=== PATIENT | female | born 1995 | race Caucasian/White ===

== ENCOUNTER 2017-01-27 13:21 | Observation (INO) ==
--- NOTE | 2017-01-27 13:40 | OB/GYN Progress Note ---
Date of Encounter: 01/27/17 Time of Encounter: 13:38 - Assessment and Plan (1) 27 weeks gestation of Current Visit: Yes Status: Acute Pt presetns with c/o off and on vb over last 3-4 days and cramps. She reports goo d po intake. No uti sx's. Subjective - Subjective Principal diagnosis: Pt presents with c/o sporadic uc's and vb 2 days ago Interval history: Pt presents with c/o off and on VB when she wipes over last few days. She also c/o low back pain and occ uc's She was given Terazol for yeast infection. She reports +GFM. Objective - Vital Signs Vital Signs: Intake and Output 01/26/17 01/27/17 01/27/17 23:59 07:59 15:59 Other: Weight 121 kg Patient Weight 01/27/17 23:59 Weight 121 kg - Exam FHR: category 1 Auscultation: bilateral: normal Abdomen: Present: gravid Uterus: Present: normal Cervical dilation: cl Cervix effacement: th station: -2
[2017-01-27 13:43] VITALS: BP 130/63
[2017-01-27 14:30] LABS: Amphetamine Screen,Urine Negative ng/mL (Cutoff=1000); Barbiturate Screen,Urine Negative ng/mL (Cutoff=200); Benzodiazepines Screen,Urine Negative ng/mL (Cutoff=200); Cannabinoid Screen,Urine Negative ng/mL (Cutoff = 50); Cocaine Screen,Urine Negative ng/mL (Cutoff= 300); Opiate Screen,Urine Negative ng/mL (Cutoff=300); Phencyclidine Screen,Urine Negative ng/mL (Cutoff=25)
[2017-01-27 14:51] LABS: Bilirubin,Urine Negative (Negative); Blood,Urine Negative (Negative); Clarity,Urine Cloudy (Clear); Color,Urine Yellow (Yellow); Glucose,Urine (UA) Normal (Normal); Ketones,Urine Negative (Negative); Leukocyte Esterase,Urine Trace (Negative); Nitrite,Urine Negative (Negative); Protein,Urine Negative (Neg-Trace); Specific Gravity,Urine 1.015 (1.010-1.025); Urobilinogen,Urine Normal (Normal)
[2017-01-27 14:52] LABS: RBC,Urine 0-3 per hpf (0-3); Squamous Epithelial Cell,Urine Many per lpf (None-Few)
== END 2017-01-27 14:59 | disposition home or self-care (01) ==
LOC: 1NENULAB
PROVIDERS: ADMIT Obstetrics & Gynecology; ATTEND Obstetrics & Gynecology

== ENCOUNTER → 2017-03-27 03:45 | Observation (INO) ==
[2017-03-26 19:16] LABS: Basophils % 0.1 %; Eosinophils % 0.3 %; Hematocrit 30.4 % (35.3-44.9); Hemoglobin 9.8 g/dL (11.5-15.4); Immature Granulocytes % 0.5 % (0-4); Lymphocytes # 0.8 K/mcL (0.6-4.6); Lymphocytes % 5.9 %; Mean Corpuscular HGB Conc 32.2 g/dL (31.6-35.5); Mean Corpuscular Hemoglobin 24.1 pg (28.0-33.3); Mean Corpuscular Volume 74.7 fL (83.0-100.0); Mean Platelet Volume 9.4 fL (9.4-12.4); Monocytes # 0.4 K/mcL (0.0-1.3); Monocytes % 2.9 %; Neutrophils # 12.6 K/mcL (1.6-8.9); Platelet Count 279 K/mcL (140-400); Red Blood Count 4.07 M/mcL (3.82-4.97); Red Cell Distribution Width 16.4 % (11.5-14.5); Segmented Neutrophils % 90.3 %
[2017-03-26 19:22] LABS: Amphetamine Screen,Urine Negative ng/mL (Cutoff=1000); Barbiturate Screen,Urine Negative ng/mL (Cutoff=200); Benzodiazepines Screen,Urine Negative ng/mL (Cutoff=200); Cannabinoid Screen,Urine Negative ng/mL (Cutoff = 50); Cocaine Screen,Urine Negative ng/mL (Cutoff= 300); Opiate Screen,Urine Negative ng/mL (Cutoff=300); Phencyclidine Screen,Urine Negative ng/mL (Cutoff=25)
[2017-03-26 19:28] LABS: Aspartate Amino Transferase 10 Units/L (5-34); BUN/Creatinine Ratio 7 (6-26); Lactate Dehydrogenase 220 Units/L (159-327); Uric Acid 5.2 mg/dL (2.6-6.0); eGFR For African Americans > 60 (> 60); eGFR For Non-African Americans > 60 (> 60)
[2017-03-26 19:29] LABS: Alanine Aminotransferase < 6 Units/L (0-55); Blood Urea Nitrogen 4 mg/dL (7-20)
[2017-03-26 22:08] LABS: Protein/Creatinine Ratio,Urine 0.14 mg/mg (0-0.20)
--- NOTE | 2017-03-26 22:39 | OB/GYN Progress Note ---
Date of Encounter: 03/27/17 Time of Encounter: 22:35 - Assessment and Plan (1) Headache in , antepartum Current Visit: Yes Status: Acute Tylenol po and reglan IVP (2) 35 weeks gestation of Current Visit: No Status: Acute (3) Dizziness, nonspecific Current Visit: No Status: Acute IV fluid given and resolved after IV bolus (4) Gestational hypertension affecting second Current Visit: Yes Status: Acute BP 150-150/80's Last 3 120/60, 128/65, 135/72 PIH labs negative. Discussed with Dr. Byrd. Due to admission tachycardia and periods of minimal variability will continue monitoring over night. anticipate discharge in AM Subjective - Subjective Interval history: 35+3 presents to triage, with complaints of nausea, dizziness, headache and not feeling well since this AM. Reports good movement, occasional contractions, denies vaginal bleeding or leaking of fluid. Pt with history of pre-e in last and states that she feels the same as when she started to have pre-e last time. Pt started on Zpack yesterday from Dr. Lancaster for URI and has taken in the past without side effects. Headache not relieved by tylenol at home. Denies visual changes except with bending over or when dizzy or RUQ pain. Antepartum ROS: movement normal, contractions, no loss of fluid, no vaginal bleeding Objective - Vital Signs Vital Signs: Intake and Output 03/26/17 03/26/17 03/26/17 07:59 15:59 23:59 Other: Weight 121.7 kg Patient Weight 03/26/17 23:59 Weight 121.7 kg - Exam FHR comments: Initial baseline 180-185 minimal variability, resolved with fluid bolus to 165 baseline, Difficult to monitor. Very active movement and accelerations heard, but not able to trace, when no activity minimal variability at baseline. Auscultation: bilateral: normal Abdomen: Present: normal appearance, soft, gravid Uterus: Present: normal Cervical dilation: closed - Labs Labs: Abnormal lab results WBC 14.0 K/mcL (4.3-11.1) H 03/26/17 18:58 Hgb 9.8 g/dL (11.5-15.4) L 03/26/17 18:58 Hct 30.4 % (35.3-44.9) L 03/26/17 18:58 MCV 74.7 fL (83.0-100.0) L 03/26/17 18:58 MCH 24.1 pg (28.0-33.3) L 03/26/17 18:58 RDW 16.4 % (11.5-14.5) H 03/26/17 18:58 Neutrophils # 12.6 K/mcL (1.6-8.9) H 03/26/17 18:58 BUN 4 mg/dL (7-20) L 03/26/17 18:58 Urine Total Protein 25 mg/dL (1-14) H 03/26/17 18:55
[~2017-03-27 03:45] MED LIST: Acetaminophen 325 MG TABLET PO ONE; Metoclopramide 10 MG/2 ML VIAL IVP ONE; Ringers Solution, Lactated 1,000 ML IVC ONE; Ringers Solution, Lactated 1,000 ML IVC SCH; Ringers Solution, Lactated 1,000 ML ONE
== END | disposition home or self-care (01) ==
LOC: 1NENULAB
PROVIDERS: ADMIT Obstetrics & Gynecology; ATTEND Obstetrics & Gynecology

== ENCOUNTER → 2017-03-27 22:32 | Observation (INO) ==
--- NOTE | 2017-03-27 22:15 | Discharge Summary ---
Date of Encounter: 03/27/17 Time of Encounter: 22:14 - Discharge Diagnosis (1) 35 weeks gestation of Priority: Primary Status: Acute Comments: Admitted for monitoring (2) Gestational hypertension w/o significant proteinuria in 3rd trimester Priority: Secondary Status: Acute Comments: Serial blood pressures (3) Headache in , antepartum Priority: Secondary Status: Acute Comments: Patient declines Tylenol because "it doesn't help." (4) NST (non-stress test) reactive Priority: Secondary Status: Acute Comments: FHR 150 bpm, moderate variability, + 15x15 accels, no decels. Category I tracing. - Discharge Medications Home Medications: Azithromycin 6-Tab Pack 1 tab PO DAILY 03/26/17 [History] Allergies/Adverse Reactions: 3 Allergy/AdvReac Type Severity Reaction Status Date / Time No Known Allergies Allergy Verified 03/27/17 21:13 Date of admission: 03/27/17 20:40 Discharging clinician: Cordelia Pat Anticipated date of discharge: 03/27/17 - Patient Status Disposition: Home, Self-Care Condition: Good Functional capacity at discharge: independent ambulation - Discharge Instructions Follow Up With: Blake Lancaster MD [Partnered Physician] - - Diet and Activity Activity: resume usual activities as tolerated Diet: regular diet Hospital Course TIRE BUFFER Hospital course: Renu is a 21 year old at 35w4d arrived with complaints of elevated blood pressures at home. Pt was in the unit yesterday for PIH evals with labs returning normal. Serial blood pressures today range from 134/73-143/85. Pt reports a headache today but hasn't taken Tylenol because she states "it doesn' t help." Reflexes 2+ bilateral upper and lower extremities, denies epigastric pain. Time Attestation: Total time spent providing and/or coordinating discharge services: Time Spent: Less than 30 minutes Exam - Constitutional General appearance IM: A&O X 3, pleasant, no acute distress - Respiratory Respiratory exam: Present: CTAB - Cardiovascular Cardiovascular exam IM: Present: RRR, +S1, +S2 - GI/Abdominal GI/Abdominal exam IM: normal bowel sounds - Rectal Rectal exam: deferred - Extremities Exam Extremities exam IM: Present: full ROM, normal capillary refill, normal inspection, warm - Neurological Exam Neurological exam: alert, oriented X3, reflexes normal - Other Additional findings: FHR 150 bpm, moderate variability, +15x15 accels, no decels. Category I tracing. - VTE Reasons for not Prescribing Prophylaxis: Treatment not Indicated - Low risk for VTE
== END | disposition home or self-care (01) ==
LOC: 1NENULAB
PROVIDERS: ADMIT Advanced Practice Midwife; ATTEND Advanced Practice Midwife

== ENCOUNTER → 2017-04-08 17:20 | Observation (INO) ==
[2017-04-08 13:25] LABS: Bilirubin,Urine Negative (Negative); Blood,Urine Negative (Negative); Clarity,Urine Cloudy (Clear); Color,Urine Yellow (Yellow); Glucose,Urine (UA) Normal (Normal); Ketones,Urine Negative (Negative); Leukocyte Esterase,Urine Large (Negative); Nitrite,Urine Negative (Negative); Protein,Urine 30 mg/dL (Neg-Trace); Specific Gravity,Urine 1.019 (1.010-1.025); Urobilinogen,Urine Normal (Normal)
[2017-04-08 13:28] LABS: Bacteria,Urine Many per hpf (None-Few); Hyaline Casts,Urine Few per lpf (None-Few); RBC,Urine 0-3 per hpf (0-3); Squamous Epithelial Cell,Urine Many per lpf (None-Few); WBC,Urine 30-50 per hpf (0-3)
[2017-04-08 13:48] LABS: Basophils % 0.2 %; Eosinophils % 0.2 %; Hemoglobin 10.2 g/dL (11.5-15.4); Immature Granulocytes % 0.6 % (0-4); Lymphocytes # 1.6 K/mcL (0.6-4.6); Lymphocytes % 11.2 %; Mean Corpuscular HGB Conc 30.9 g/dL (31.6-35.5); Mean Corpuscular Hemoglobin 23.3 pg (28.0-33.3); Mean Corpuscular Volume 75.3 fL (83.0-100.0); Mean Platelet Volume 9.8 fL (9.4-12.4); Monocytes # 0.6 K/mcL (0.0-1.3); Monocytes % 3.9 %; Platelet Count 309 K/mcL (140-400); Red Blood Count 4.38 M/mcL (3.82-4.97); Red Cell Distribution Width 16.5 % (11.5-14.5); Segmented Neutrophils % 83.9 %
[2017-04-08 14:01] LABS: Alanine Aminotransferase 7 Units/L (0-55); Aspartate Amino Transferase 8 Units/L (5-34); BUN/Creatinine Ratio 5 (6-26); Lactate Dehydrogenase 178 Units/L (159-327); Uric Acid 5.3 mg/dL (2.6-6.0); eGFR For African Americans > 60 (> 60); eGFR For Non-African Americans > 60 (> 60)
[2017-04-08 14:02] LABS: Blood Urea Nitrogen 3 mg/dL (7-20)
[2017-04-08 14:30] LABS: Amphetamine Screen,Urine Negative ng/mL (Cutoff=1000); Barbiturate Screen,Urine Negative ng/mL (Cutoff=200); Benzodiazepines Screen,Urine Negative ng/mL (Cutoff=200); Cannabinoid Screen,Urine Negative ng/mL (Cutoff = 50); Cocaine Screen,Urine Negative ng/mL (Cutoff= 300); Opiate Screen,Urine Negative ng/mL (Cutoff=300); Phencyclidine Screen,Urine Negative ng/mL (Cutoff=25)
[2017-04-08 14:31] LABS: Protein/Creatinine Ratio,Urine 0.18 mg/mg (0-0.20)
--- NOTE | 2017-04-08 17:19 | OB/GYN Progress Note ---
Date of Encounter: 04/08/17 Time of Encounter: 17:16 - Assessment and Plan (1) 37 weeks gestation of Current Visit: Yes Status: Acute (2) Uterine contractions Current Visit: Yes Status: Acute Pt continue to have contractions q5-10 minutes, but no cervical change on serial exams over 4 hours. Discussed with ashley Easton to discharge home. Discharged with labor and when to return to triage precautions. Pt and family verbalize understanding (3) NST (non-stress test) reactive Current Visit: No Status: Acute baseline 150 Subjective - Subjective Interval history: 37+2 weeks gestation presents to labor and delivery with contractions. Patient states contractions began this morning and are approximately every 10 minutes apart. Reports good movement, denies vaginal bleeding or leaking of fluid. Denies dysuria, headache, blurry vision, right upper quadrant pain. History of section. Antepartum ROS: movement normal, contractions, no loss of fluid, no vaginal bleeding Objective - Vital Signs Vital Signs: Intake and Output 04/08/17 04/08/17 04/08/17 07:59 15:59 23:59 Other: Weight 119 kg Patient Weight 04/08/17 23:59 Weight 119 kg - Exam FHR: auscultation normal FHR comments: baseline 150 Auscultation: bilateral: normal Abdomen: Present: normal appearance, soft, gravid Uterus: Present: normal Cervical dilation: 1/long/-3 - Labs Labs: Abnormal lab results WBC 14.3 K/mcL (4.3-11.1) H 04/08/17 13:38 Hgb 10.2 g/dL (11.5-15.4) L 04/08/17 13:38 Hct 33.0 % (35.3-44.9) L 04/08/17 13:38 MCV 75.3 fL (83.0-100.0) L 04/08/17 13:38 MCH 23.3 pg (28.0-33.3) L 04/08/17 13:38 MCHC 30.9 g/dL (31.6-35.5) L 04/08/17 13:38 RDW 16.5 % (11.5-14.5) H 04/08/17 13:38 Neutrophils # 12.0 K/mcL (1.6-8.9) H 04/08/17 13:38 BUN 3 mg/dL (7-20) L 04/08/17 13:38 BUN/Creatinine Ratio 5 (6-26) L 04/08/17 13:38 Urine Clarity Cloudy (Clear) A 04/08/17 13:13 Urine Protein 30 mg/dL (Neg-Trace) H 04/08/17 13:13 Ur Leukocyte Esterase Large (Negative) H 04/08/17 13:13 Urine Microscopic WBC 30-50 per hpf (0-3) H 04/08/17 13:13 Ur Squamous Epith Cells Many per lpf (None-Few) H 04/08/17 13:13 Urine Bacteria Many per hpf (None-Few) H 04/08/17 13:13 Ur Culture Indicated? YES (NO) A 04/08/17 13:13 Urine Total Protein 24 mg/dL (1-14) H 04/08/17 13:38
[~2017-04-08 17:20] MED LIST changes: -Acetaminophen 325 MG TABLET PO ONE; -Metoclopramide 10 MG/2 ML VIAL IVP ONE; -Ringers Solution, Lactated 1,000 ML IVC SCH
== END | disposition home or self-care (01) ==
LOC: 1NENULAB
PROVIDERS: ADMIT Student in an Organized Health Care Education/Training Program; ATTEND Student in an Organized Health Care Education/Training Program

== ENCOUNTER → 2017-04-17 03:24 | Observation (INO) ==
[2017-04-16 22:48] VITALS: BP 138/82
--- NOTE | 2017-04-16 22:49 | OB/GYN Progress Note ---
Date of Encounter: 04/17/17 Time of Encounter: 22:45 - Assessment and Plan (1) Fall Status: Acute Discussed with . monitoring at least 4 hours post fall, LR bolus followed by 125ml/hr, CMP, Re-evaluate after 4 hours of monitoring. NST reactive on admission. Care transfered to Dr. Espinoza. Qualifiers: Encounter type: initial encounter Qualified Code(s): W19.XXXA - Unspecified fall, initial encounter (2) 38 weeks gestation of Status: Acute (3) Uterine contractions Status: Acute No cervical change from last admission at first cervical check, //-3 (4) Back pain affecting in third trimester Status: Acute pt states noticed back pain mostly after fall. Discussed with Dr. Espinoza. Flexaril and Tylenol given. Subjective - Subjective Interval history: 38+3 weeks gestation, presents to triage after fall at home at 2100. Pt states she does not remember falling. Pt states she felt dizzy and warm all over and fell forward onto her face, hitting abdomen. Pt states she has been having contraction, back and abdominal pain for the last couple weeks, has been to triage for labor evaluations, but now she feels that pain is different. Constant lower lumbar pain with intermittent back pain. Reports good movement, denies vaginal bleeding or leaking of fluid. Antepartum ROS: movement normal, contractions, no loss of fluid, no vaginal bleeding Objective - Exam FHR: auscultation normal, category 1 FHR comments: Baseline 145, Reactive Abdomen: Present: normal appearance, soft, gravid Uterus: Present: normal. Absent: tenderness Cervical dilation: /-3 - Allied health notes Allied health notes reviewed: nursing
[2017-04-16 23:28] LABS: Hematocrit 31.1 % (35.3-44.9); Hemoglobin 9.7 g/dL (11.5-15.4); Mean Corpuscular HGB Conc 31.2 g/dL (31.6-35.5); Mean Corpuscular Hemoglobin 23.8 pg (28.0-33.3); Mean Corpuscular Volume 76.2 fL (83.0-100.0); Mean Platelet Volume 9.7 fL (9.4-12.4); Platelet Count 326 K/mcL (140-400); Red Blood Count 4.08 M/mcL (3.82-4.97); Red Cell Distribution Width 16.7 % (11.5-14.5)
[2017-04-16 23:39] LABS: Amphetamine Screen,Urine Negative ng/mL (Cutoff=1000); Barbiturate Screen,Urine Negative ng/mL (Cutoff=200); Benzodiazepines Screen,Urine Negative ng/mL (Cutoff=200); Cannabinoid Screen,Urine Negative ng/mL (Cutoff = 50); Cocaine Screen,Urine Negative ng/mL (Cutoff= 300); Opiate Screen,Urine Negative ng/mL (Cutoff=300); Phencyclidine Screen,Urine Negative ng/mL (Cutoff=25)
[2017-04-17 00:06] LABS: Alanine Aminotransferase 8 Units/L (0-55); Albumin 2.3 g/dL (3.5-5.0); Albumin/Globulin Ratio 0.6 (1.1-2.2); Alkaline Phosphatase 144 Units/L (38-126); Aspartate Amino Transferase 7 Units/L (5-34); BUN/Creatinine Ratio 9 (6-26); Bilirubin,Total 0.3 mg/dL (0.2-1.2); Calcium 8.7 mg/dL (8.6-10.8); Carbon Dioxide 21 mEq/L (19-29); Chloride 109 mEq/L (98-109); Globulin 3.9 g/dL (2.4-3.5); Glucose 87 mg/dL (70-99); Osmolality,Calculated 285 (280-300); Potassium 3.5 mEq/L (3.5-4.5); Sodium 139 mEq/L (136-145); Total Protein 6.2 g/dL (6.0-8.3); eGFR For African Americans > 60 (> 60); eGFR For Non-African Americans > 60 (> 60)
[2017-04-17 00:08] LABS: Blood Urea Nitrogen 5 mg/dL (7-20)
--- NOTE | 2017-04-17 03:20 | OB/GYN Progress Note ---
Date of Encounter: 04/17/17 Time of Encounter: 03:17 - Assessment and Plan (1) Fall Current Visit: Yes Status: Acute Discussed with . monitoring at least 4 hours post fall, LR bolus followed by 125ml/hr, CMP, Re-evaluate after 4 hours of monitoring. NST reactive on admission. monitoring has been category 1 for the 4 hours. She has been seen. She has irregular contractions. Qualifiers: Encounter type: initial encounter Qualified Code(s): W19.XXXA - Unspecified fall, initial encounter (2) 38 weeks gestation of Current Visit: No Status: Acute care as scheduled (3) Uterine contractions Current Visit: No Status: Acute No cervical change from last admission at first cervical check, /-3. No change of contraction pattern throughout visit. Contractions are irregular and mild (4) Back pain affecting in third trimester Current Visit: Yes Status: Acute pt states noticed back pain mostly after fall. Discussed with Dr. Espinoza. Flexaril and Tylenol given. Patient reports some improvement with Flexeril that wishes to go home to be in her own bed which is more comfortable Subjective - Subjective Principal diagnosis: 38 week IUP status post fall Interval history: The patient has been observed for over 4 hours with monitoring. She denies any vaginal bleeding or loss of fluid. She reports an active fetus. The contractions seen are consistent with previous and recent visits. She fell forward after feeling lightheaded and dizzy. Electrolytes and CBC were obtained and are stable. Her hemoglobin is 9.7 which is minimally changed from her previous visit. The patient is requesting discharge Antepartum ROS: movement normal, contractions, no loss of fluid, no vaginal bleeding Objective - Vital Signs Vital Signs: Vital Signs Pulse Resp BP 04/16/17 22:37 103 14 138/82 Intake and Output 04/16/17 04/16/17 04/17/17 15:59 23:59 07:59 Other: Weight 121.5 kg - Exam FHR: category 1 Abdomen: Present: normal appearance, soft, gravid. Absent: tenderness - Labs Labs: Abnormal lab results WBC 15.1 K/mcL (4.3-11.1) H 04/16/17 23:09 Hgb 9.7 g/dL (11.5-15.4) L 04/16/17 23:09 Hct 31.1 % (35.3-44.9) L 04/16/17 23:09 MCV 76.2 fL (83.0-100.0) L 04/16/17 23:09 MCH 23.8 pg (28.0-33.3) L 04/16/17 23:09 MCHC 31.2 g/dL (31.6-35.5) L 04/16/17 23:09 RDW 16.7 % (11.5-14.5) H 04/16/17 23:09 BUN 5 mg/dL (7-20) L 04/16/17 23:44 Alkaline Phosphatase 144 Units/L (38-126) H 04/16/17 23:44 Albumin 2.3 g/dL (3.5-5.0) L 04/16/17 23:44 Globulin 3.9 g/dL (2.4-3.5) H 04/16/17 23:44 Albumin/Globulin Ratio 0.6 (1.1-2.2) L 04/16/17 23:44 - Allied health notes Allied health notes reviewed: nursing
[~2017-04-17 03:24] MED LIST changes: +Acetaminophen 325 MG TABLET PO ONE; +Ringers Solution, Lactated 1,000 ML IVC SCH; -Ringers Solution, Lactated 1,000 ML ONE
== END | disposition home or self-care (01) ==
LOC: 1NENULAB
PROVIDERS: ADMIT Obstetrics & Gynecology; ATTEND Obstetrics & Gynecology

== ENCOUNTER 2017-04-21 10:03 | Inpatient (IN) ==
[2017-04-21] MEDS ORDERED: Metoclopramide 10 MG/2 ML VIAL IVP ONE (10:34)
[2017-04-21] MEDS ORDERED: Famotidine 20 MG/2 ML VIAL IVP ONE (10:34)
[2017-04-21] MEDS ORDERED: Ringers Solution, Lactated 1,000 ML IVC ONE (10:34)
[2017-04-21] MEDS ORDERED: Oxytocin 20 units/ LR 1000 mL 20 UNIT/1,000 ML BAG IVC ONE (10:34)
[2017-04-21] MEDS ORDERED: CeFAZolin Premix DUPLEX 2,000 MG/50 ML BAG IVPB ONE (10:34)
[2017-04-21] MEDS ORDERED: Ringers Solution, Lactated 1,000 ML IVC SCH (10:45)
[2017-04-21] MEDS ORDERED: Ringers Solution, Lactated 1,000 ML ONE (10:45)
[2017-04-21 10:52] LABS: Basophils % 0.2 %; Eosinophils % 0.3 %; Hematocrit 32.6 % (35.3-44.9); Immature Granulocytes % 0.8 % (0-4); Lymphocytes # 1.8 K/mcL (0.6-4.6); Lymphocytes % 14.4 %; Mean Corpuscular HGB Conc 30.7 g/dL (31.6-35.5); Mean Corpuscular Hemoglobin 23.2 pg (28.0-33.3); Mean Corpuscular Volume 75.6 fL (83.0-100.0); Mean Platelet Volume 9.8 fL (9.4-12.4); Monocytes # 0.7 K/mcL (0.0-1.3); Neutrophils # 9.7 K/mcL (1.6-8.9); Platelet Count 340 K/mcL (140-400); Red Blood Count 4.31 M/mcL (3.82-4.97); Segmented Neutrophils % 78.3 %
[2017-04-21 11:02] LABS: BUN/Creatinine Ratio 7 (6-26); Calcium 8.8 mg/dL (8.6-10.8); Carbon Dioxide 19 mEq/L (19-29); Chloride 110 mEq/L (98-109); Glucose 89 mg/dL (70-99); Osmolality,Calculated 280 (280-300); Potassium 3.6 mEq/L (3.5-4.5); Sodium 137 mEq/L (136-145); eGFR For African Americans > 60 (> 60); eGFR For Non-African Americans > 60 (> 60)
--- NOTE | 2017-04-21 11:05 | OB/GYN History & Physical ---
Date of Encounter: 04/21/17 Time of Encounter: 11:03 Assessment and Plan (1) 39 weeks gestation of Current visit: Yes Status: Acute admitted for scheduled repeat c/s (2) Rubella non-immune status, antepartum Current visit: No Status: Acute MMR prior to discharge home History of Present Illness Chief complaint: Scheduled repeat c/s HPI: Ms. Velazco is a 21 year old female at 39 weeks gestation presents for scheduled repeat c/s for Dr. Lancaster. Patient reports +FM, denies contractions , LOF or VB. Patient reports has been uncomplicated. Blood type: O+, Rubella: Non-immune, Hep B: Nonreactive, GBS: positive. Past Med Surg Social Fam HX - Past Medical History Source: patient Medical history: no medical history Psychiatric history: anxiety - Past Surgical History Surgical History: , other - Social History Smoking Status: Former smoker Smokeless Tobacco Status: No Alcohol use: none Drug use: none Activity Level: Independent ambulation Recent Out of Country Travel Within the Last 8 Weeks: No Exposure or Possible Exposure to Illness During Travel: No - Family History Mother History Unknown: Yes Adopted: No Family Member Ethnicity: Non- Living Status: Still Living Hx Family Cardiac Disorders: Yes (high bp, high chol) Hx Family Respiratory Disorders: No Hx Family Cancer: No Hx Family GI Disorders: No Hx Family Endocrine Disorder: No Hx Family Neuromuscular Disorders: No Hx Family Neurologic Disorders: No Hx Family HEENT Disorders: No Hx Family Autoimmune Disorders: No Obstetrical History - Pregnancies : 2 Para: 1 Term: 1 : 0 Ab's: 0 Livin Medications and Allergies Monistat 7 04/16/17 [History] 3 Allergy/AdvReac Type Severity Reaction Status Date / Time No Known Allergies Allergy Verified 03/27/17 21:13 Review of System OB - Constitutional Constitutional ROS IM: no fatigue, no fever(s), no headache(s), no weakness - Cardiovascular Cardiovascular: no chest pain, no palpitations, no syncope - Respiratory Respiratory: no cough, no dyspnea - Gastrointestinal Gastrointestinal: no abdominal pain, no constipation, no cramping, no diarrhea, no heartburn, no nausea, no vomiting - Genitourinary Genitourinary: no abnormal vaginal bleeding, no dysuria, no flank pain, no urinary frequency, no urinary incontinence, no urinary urgency, no vaginal discharge, no vaginal odor, no vaginal pruritis Exam - Constitutional Constitutional: well developed, well nourished, no acute distress, average body habitus - HEENT HEENT: Normocephaly, Mucus Membranes Moist - Neck Neck exam: full ROM, supple - Lungs Respiratory exam: CTAB - Cardiovascular Cardiovascular exam: RRR, +S1, +S2 - Abdomen Abdomen: Present: bowel sounds normal, gravid, non tender - Extremities Extremities exam: full ROM, normal inspection Deep Tendon Reflex Grade: 2+ Normal - Uterus Uterus exam: Present: normal size, normal contour (FHR 145 bpm moderate variability +15x15 accels no decels noted. Irregular contractions. Cat. 1 tracing.) Results Result Diagrams: 04/21/17 10:40 Abnormal lab results WBC 12.4 K/mcL (4.3-11.1) H 04/21/17 10:40 Hgb 10.0 g/dL (11.5-15.4) L 04/21/17 10:40 Hct 32.6 % (35.3-44.9) L 04/21/17 10:40 MCV 75.6 fL (83.0-100.0) L 04/21/17 10:40 MCH 23.2 pg (28.0-33.3) L 04/21/17 10:40 MCHC 30.7 g/dL (31.6-35.5) L 04/21/17 10:40 RDW 17.0 % (11.5-14.5) H 04/21/17 10:40 Neutrophils # 9.7 K/mcL (1.6-8.9) H 04/21/17 10:40 All other labs normal.
--- NOTE | 2017-04-21 11:06 | Anesthesia Evaluation PreOp ---
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 Any Significant HX Other Medical History: GERD (Obese) Anesthesia History: No Prior Anesthetic Complications, Past Anesthesia (C- Section under GA) : Yes (39 weeks, ) Alcohol Use: none Drug use: none Medications and Allergies Monistat 7 04/16/17 [History] 3 Allergy/AdvReac Type Severity Reaction Status Date / Time No Known Allergies Allergy Verified 03/27/17 21:13 - Meds/Allergy Pre-op Review Medications Reviewed: Yes Allergies Reviewed: Yes Beta Blockers on Current Med List: No Anesthesia Results - Labs 04/21/17 10:40 Laboratory Tests 08/19/16 04/16/17 04/21/17 07:21 23:44 10:40 Hgb 10.0 L Hct 32.6 L Plt Count 340 PT 11.6 INR 1.1 Sodium 139 Potassium 3.5 BUN 5 L Creatinine 0.57 Anesthesia Exam O2 Sat Height 1.73 m Weight 119 kg Height: 5'8 Weight: 260 lbs NPO (# of Hours): MN Pain Scale: 0 - HEENT Pupil (Motor): Pupils equal, EOMI Mallampati: II Teeth: Normal Oral Opening: Greater than 3 - CHEMISTRY PHYSICS TEACHER LOC: Oriented CHEMISTRY PHYSICS TEACHER Motor: Normal RUE, Normal LUE, Normal RLE, Normal LLE, Normal Face CHEMISTRY PHYSICS TEACHER Sensory: Normal: RUE, LUE, RLE, LLE, Face - Cardiac Rhythm: Regular Murmur: None JVD: No Carotid Bruit: No - Pulmonary Breath Sounds: bilateral Clear Respiratory Effort: Symmetrical Anesthesia Assess/Plan ASA Score: 2 Modified Vitaly Scale for Level of Consciousness: Cooperative, oriented, and tranquil Anesthetic Plan: Regional Monitoring Plan: Standard Monitors Recovery Plan: PACU (Discussed RA, possible GA, agrees to proceed)
[2017-04-21 11:08] LABS: Blood Urea Nitrogen 4 mg/dL (7-20)
[2017-04-21] MEDS ORDERED: *HR* Phenylephrine 10 MG/ML VIAL ONE (11:34)
[2017-04-21] MEDS ORDERED: *HR* Morphine Sulfate/PF 5 MG/10 ML AMPUL ONE (11:39)
[2017-04-21] MEDS ORDERED: *HR* FentaNYL (PF) 100 MCG/2 ML VIAL ONE (11:39)
[2017-04-21] MEDS ORDERED: *HR* Oxytocin 10 UNIT/ML VIAL IM ONE (11:39)
--- NOTE | 2017-04-21 12:49 | Anesthesia Procedures ---
Date of Encounter: 04/21/17 Time of Encounter: 12:47 Procedures: Anesthesia - Epidural/Spinal Patient ID/Chart reviewed: Yes Patient examined: Yes OB Eval: Gestational age: 39 OB Eval: : 2 OB Eval: Hx Para: 1 OB Eval: Dilated at (cm): 2 OB Eval: Contractions: Non-stressed pattern Consent Obtained: Yes Supplemental Oxygen: None/Room Air Supplemental Oxygen Rate (L/min): 3 Site Prep: Aseptic Technique, Povidone-Iodine 1% Patient position: upright Local Anesthetic: Lidocaine 1% Amount of Local Anesthetic used: 3 Interspace Used: L2-L3 Loss of Resistance (NOLBERTO): No Blood: No CSF: Yes Paresthesia: No Spinal Needle Gauge: 25 Spinal Dose: marcaine 12mg, duramorph 0.25, fentanyl 7 mcg Procedure: eptic, tolerated well, effective Vitals + FHT's: 143/76 86 16 fht 133
[2017-04-21] MEDS ORDERED: Ondansetron 4 MG/2 ML VIAL IVP PRN ×3 (12:54→17:51)
[2017-04-21] MEDS ORDERED: *HR* HYDROmorphone (PF) 1 MG/ML SYRINGE IVP PRN ×2 (12:54→14:01)
[2017-04-21] MEDS ORDERED: Ondansetron 4 MG/2 ML VIAL ONE (13:03)
--- NOTE | 2017-04-21 13:57 | OB/GYN Procedure Note ---
Section - Date of procedure: 04/21/17 Preop diagnosis: desires repeat Post-op diagnosis: same Procedure: section, repeat low transverse Surgeon: Blake Lancaster Estimated blood loss (cc): 300 Anesthesia Type: Spinal section complications: none Disposition: L&D Recovery Room Specimens: Placenta - (s) A Delivery Date: 04/21/17 Infant Delivery Time: 12:56 Presentation: vertex Gender: Male Viability: Viable Pounds: 8 Ounces: 2 at 1 minute: 8 at 5 minutes: 9 Shoulder Dystocia: not encountered Specimens collected: cord blood Placenta: spontaneous Cord: 3 umbilical vessels - Narrative Narrative: Patient's 21-year-old 2 now para 2 female presented for repeat section she was wearing operative risks and signed appropriate consent. Description procedure: Patient was taken operating room where spinal anesthesia was administered she is prepped draped in usual sterile fashion bladder was drained of clear urine with Cordoba catheter. Scalpel was used to make Pfannenstiel skin incision was sharply taken down the rectus fascia. Fascia was incised midline fascial incision was extended bilaterally. Peritoneum was entered bluntly and bladder blade was placed bladder flap was developed and lower uterine segment. Scalpel was used to make a low transverse uterine incision this was extended bluntly bilaterally. Membranes were ruptured clear fluid. was delivered from vertex presentation. Cord was clamped cut and was handed nurse personnel who were in attendance. weight was found to be 8 lbs. 2 oz. with Apgars of 8 at 1 minute and 9 at 5 minutes. Placenta was delivered manually and uterine cavity was massaged free of all residual tissue. Uterus closed 0 Vicryl running lock stitch. Hemostasis was ensured. Fascia was closed 0 Vicryl in running manner. Again irrigation was performed hemostasis was assured skin edges reapproximated with 4-0 Vicryl.
[2017-04-21] MEDS ORDERED: *HR* OxyCODONE/APAP 5/325 TABLET PO PRN (17:51)
[2017-04-21] MEDS ORDERED: Oxytocin 20 units/ LR 1000 mL 20 UNIT/1,000 ML BAG IVC SCH ×2 (17:51)
[2017-04-21] MEDS ORDERED: Simethicone 80 MG TAB.CHEW PO PRN (17:51)
[2017-04-21] MEDS ORDERED: Acetaminophen 325 MG TABLET PO PRN (17:51)
[2017-04-21] MEDS ORDERED: Rho Immune Globulin 1,500 UNIT SYRINGE IM ONE (17:51)
[2017-04-21] MEDS ORDERED: Sennosides 8.6 MG TABLET PO PRN (17:51)
[2017-04-21] MEDS ORDERED: Metoclopramide 10 MG/2 ML VIAL IVP PRN (17:51)
[2017-04-22] MEDS: Ibuprofen 600 MG TABLET PO PRN ×3 (04:02→18:44)
[2017-04-22 07:32] LABS: Basophils % 0.2 %; Eosinophils # 0.1 K/mcL (0.0-0.6); Eosinophils % 0.5 %; Hematocrit 28.5 % (35.3-44.9); Hemoglobin 8.8 g/dL (11.5-15.4); Immature Granulocytes % 0.7 % (0-4); Lymphocytes # 1.7 K/mcL (0.6-4.6); Lymphocytes % 13.3 %; Mean Corpuscular HGB Conc 30.9 g/dL (31.6-35.5); Mean Corpuscular Hemoglobin 23.1 pg (28.0-33.3); Mean Corpuscular Volume 74.8 fL (83.0-100.0); Mean Platelet Volume 10.5 fL (9.4-12.4); Monocytes % 7.6 %; Neutrophils # 10.1 K/mcL (1.6-8.9); Platelet Count 253 K/mcL (140-400); Red Blood Count 3.81 M/mcL (3.82-4.97); Red Cell Distribution Width 17.1 % (11.5-14.5); Segmented Neutrophils % 77.7 %
[2017-04-22] MEDS: Prenatal Vit/FA 1 EACH TABLET PO SCH (08:34)
--- NOTE | 2017-04-22 14:09 | OB/GYN Progress Note ---
Date of Encounter: 04/22/17 Time of Encounter: 14:09 - Assessment and Plan (1) S/P section Current Visit: Yes Status: Acute Pt meeting POD#1 milestones. See flowsheet. (2) anemia Current Visit: Yes Status: Acute On iron, pt denies s/sx anemia at this time. Subjective - Subjective Interval history: Pt reports being tired but otherwise well today. Patient reports: appetite normal, voiding normally, pain well controlled, ambulating normally [place]: doing well Objective - Vital Signs Latest vital signs: Vital Signs Temp Pulse Resp BP Pulse Ox 04/22/17 08:09 98.4 F 87 16 134/80 97 04/22/17 03:30 99.1 F 85 16 118/75 98 04/21/17 23:35 98.8 F 89 18 136/82 98 04/21/17 19:35 98.5 F 95 16 121/73 96 04/21/17 18:40 98.7 F 89 16 117/73 97 04/21/17 17:35 97.8 F 92 16 131/81 97 04/21/17 16:36 98.1 F 88 16 123/79 98 04/21/17 16:05 84 16 124/69 97 04/21/17 15:30 98.8 F 89 18 109/66 99 Intake and Output 04/21/17 04/22/17 04/22/17 23:59 07:59 15:59 Intake Total 840 / 840 200 / 200 Output Total 950 / 950 1200 / 1200 300 / 300 Balance -110 / -110 -1000 / -1000 -300 / -300 Intake: Oral 840 / 840 200 / 200 Output: Urine 300 / 300 Catheter 950 / 950 1200 / 1200 Other: Weight 114.078 kg Patient Weight 04/22/17 23:59 Weight 114.078 kg - Exam Lungs: bilateral: normal Chest: Normal S1, Normal S2 Extremities: Present: normal Abdomen: Present: soft Incision: Present: dry, intact, dressed Uterus: Present: firm - Labs Labs: Laboratory Results - last 24 hr 04/22/17 06:41 WBC 13.0 H RBC 3.81 L Hgb 8.8 L Hct 28.5 L MCV 74.8 L MCH 23.1 L MCHC 30.9 L RDW 17.1 H Plt Count 253 MPV 10.5 Immature Gran % 0.7 Seg Neutrophils % 77.7 Lymphocytes % 13.3 Monocytes % 7.6 Eosinophils % 0.5 Basophils % 0.2 Neutrophils # 10.1 H Lymphocytes # 1.7 Monocytes # 1.0 Eosinophils # 0.1 Basophils # 0.0
[2017-04-23] MEDS: Ibuprofen 600 MG TABLET PO PRN ×2 (01:21→10:02)
[2017-04-23 08:05] VITALS: BP 123/73
--- NOTE | 2017-04-23 08:29 | Discharge Summary ---
Date of Encounter: 04/23/17 Time of Encounter: 08:27 - Discharge Diagnosis (1) S/P section Priority: Primary Status: Acute Comments: Patient had a repeat C section on 04/21/17. She states that she is doing well today and feels like she is ready to go home. States that she is able to urinate , pass gas and has had one small stool. Has had decreased vaginal bleeding. Denies any pain or discharge at this time. She is tolerating a normal diet. Has been able to ambulate without issues. Denies any bleeding or discharge from the incision or dressing. States that she has been bottle feeding without issues. Patient is currently stable and appropriate for discharge. (2) anemia Priority: Secondary Status: Acute Comments: Patient had a hemoglobin of 8.8 She has been receiving iron and will be sent home with a prescription for iron. Patient is currently stable and appropriate for discharge. - Discharge Medications Prescriptions: OxyCODONE/APAP 5/325 [Percocet 5/325 MG] 1 each PO Q4HR PRN #20 tablet PRN Reason: Moderate pain 4-6 Ibuprofen [Motrin] 600 mg PO Q6HR PRN #60 tablet PRN Reason: Cramping Docusate [Colace] 100 mg PO BID #30 capsule Ferrous Sulfate 325 mg PO BID #60 tablet Home Medications: Docusate [Colace] 100 mg PO BID #30 capsule 04/23/17 [Rx] Ferrous Sulfate 325 mg PO BID #60 tablet 04/23/17 [Rx] Ibuprofen [Motrin] 600 mg PO Q6HR PRN #60 tablet 04/23/17 [Rx] OxyCODONE/APAP 5/325 [Percocet 5/325 MG] 1 each PO Q4HR PRN #20 tablet 04/23/17 [Rx] Vit/FA 1 each PO DAILY tablet 04/23/17 [Rx] Allergies/Adverse Reactions: 3 Allergy/AdvReac Type Severity Reaction Status Date / Time No Known Allergies Allergy Verified 03/27/17 21:13 Data Procedures and tests throughout hospitalization: Laboratory Tests 04/21/17 04/21/17 04/22/17 10:40 10:40 06:41 WBC 12.4 H 13.0 H RBC 4.31 3.81 L Hgb 10.0 L 8.8 L Hct 32.6 L 28.5 L MCV 75.6 L 74.8 L MCH 23.2 L 23.1 L MCHC 30.7 L 30.9 L RDW 17.0 H 17.1 H Plt Count 340 253 MPV 9.8 10.5 Immature Gran % 0.8 0.7 Seg Neutrophils % 78.3 77.7 Lymphocytes % 14.4 13.3 Monocytes % 6.0 7.6 Eosinophils % 0.3 0.5 Basophils % 0.2 0.2 Neutrophils # 9.7 H 10.1 H Lymphocytes # 1.8 1.7 Monocytes # 0.7 1.0 Eosinophils # 0.0 0.1 Basophils # 0.0 0.0 Sodium 137 Potassium 3.6 Chloride 110 H Carbon Dioxide 19 BUN 4 L Creatinine 0.60 Est GFR ( Amer) > 60 Est GFR (Non-Af Amer) > 60 BUN/Creatinine Ratio 7 Glucose 89 Calculated Osmolality 280 Calcium 8.8 Date of admission: 04/21/17 10:03 Primary care physician: PCP NONE Discharging clinician: Guanako López Anticipated date of discharge: 04/23/17 - Patient Status Disposition: Home, Self-Care Condition: Good Functional capacity at discharge: independent ambulation Overall status at discharge: patient is progressing back to baseline - Discharge Instructions Follow Up With: NONE,PCP [Primary Care Provider] - Blake Lancaster MD [Partnered Physician] - - Diet and Activity Activity: increase activity as tolerated Diet: advance to your usual diet Hospital Course Reason for admission: section Delivery: section Episiotomy: none Laceration: none Other procedures: none complications: none Discharge diagnosis: IUP at term delivered (Repeat C section by Dr Lancaster. ) [place] baby: male Hospital course: - Date of procedure: 04/21/17 Preop diagnosis: desires repeat Post-op diagnosis: same Procedure: section, repeat low transverse Surgeon: Blake Lancaster Estimated blood loss (cc): 300 Anesthesia Type: Spinal section complications: none Disposition: L&D Recovery Room Specimens: Placenta - Infant (s) Infant A Delivery Date: 04/21/17 Delivery Time: 12:56 Presentation: vertex Gender: Male Viability: Viable Pounds: 8 Ounces: 2 at 1 minute: 8 at 5 minutes: 9 Shoulder Dystocia: not encountered Specimens collected: cord blood Placenta: spontaneous Cord: 3 umbilical vessels - Narrative Narrative: Patient's 21-year-old 2 now para 2 female presented for repeat section she was wearing operative risks and signed appropriate consent. Description procedure: Patient was taken operating room where spinal anesthesia was administered she is prepped draped in usual sterile fashion bladder was drained of clear urine with Cordoba catheter. Scalpel was used to make Pfannenstiel skin incision was sharply taken down the rectus fascia. Fascia was incised midline fascial incision was extended bilaterally. Peritoneum was entered bluntly and bladder blade was placed bladder flap was developed and lower uterine segment. Scalpel was used to make a low transverse uterine incision this was extended bluntly bilaterally. Membranes were ruptured clear fluid. Infant was delivered from vertex presentation. Cord was clamped cut and was handed nurse personnel who were in attendance. weight was found to be 8 lbs. 2 oz. with Apgars of 8 at 1 minute and 9 at 5 minutes. Placenta was delivered manually and uterine cavity was massaged free of all residual tissue. Uterus closed 0 Vicryl running lock stitch. Hemostasis was ensured. Fascia was closed 0 Vicryl in running manner. Again irrigation was performed hemostasis was assured skin edges reapproximated with 4-0 Vicryl. Stable in PP and appropriate for discharge Time Attestation: Total time spent providing and/or coordinating discharge services: Time Spent: Less than 30 minutes - VTE Documentation of Mechanical Device: Intermittent pneumatic compression device Exam - Constitutional Vitals: Temp Pulse Resp BP Pulse Ox 98.2 F 96 12 123/73 99 04/23/17 07:40 04/23/17 07:40 04/23/17 07:40 04/23/17 07:40 04/23/17 07:40 General appearance IM: A&O X 3 - Respiratory Respiratory exam: Present: CTAB - Cardiovascular Cardiovascular exam IM: Present: RRR, +S1, +S2 - GI/Abdominal GI/Abdominal exam IM: normal bowel sounds, no peritoneal signs Incision: dry, dressed - Uterine Tone: Firm Uterus Position: 1 Finger Below Umbilicus - Extremities Exam Extremities exam IM: Present: normal capillary refill, normal inspection. Absent: calf tenderness - Neurological Exam Neurological exam: alert, oriented X3 - Psychiatric Additional comments: reports good mood
[2017-04-23] MEDS: Prenatal Vit/FA 1 EACH TABLET PO SCH (10:07)
== END 2017-04-23 12:10 | disposition home or self-care (01) | DRG 540 ==
LOC: 1NENULAB 10:03 → 1NENUOBS 15:38
PROVIDERS: ADMIT Obstetrics & Gynecology; ATTEND Obstetrics & Gynecology